=== PATIENT | female | born 1950 | race Caucasian/White ===

== ENCOUNTER 2017-03-14 09:41 | Day surgery (SDC) | payer OTHER ==
[2017-03-14] MEDS ORDERED: NS 500 ML IV 500 ML IV ONE (09:55)
[2017-03-14] MEDS ORDERED: NS 1/2 1000 ML IV 500 ML IV ONE (10:00)
[2017-03-14] MEDS ORDERED: TETRACAINE 0.5% OPHTH 1 DOSE AFFEYE ONE ×2 (10:00→13:35)
[2017-03-14] MEDS: VIGAMOX 0.5% OPHTH 1 DOSE AFFEYE ONE ×2 (10:01→13:46)
[2017-03-14] MEDS ORDERED: VIGAMOX 0.5% OPHTH 1 DOSE AFFEYE ONE ×2 (10:06→10:11)
[2017-03-14] MEDS ORDERED: PROLENSA OPHTH 1 DOSE AFFEYE ONE (10:12)
[2017-03-14] MEDS ORDERED: ALPHAGAN-P OPHTH 1 DOSE AFFEYE ONE (10:13)
[2017-03-14] MEDS ORDERED: AK-DILATE 2.5% OPHTH 1 DOSE OP ONE ×3 (10:14→10:16)
[2017-03-14] MEDS ORDERED: MYDRIACIL OPHTH 1 DOSE AFFEYE ONE ×3 (10:14→10:16)
[2017-03-14] MEDS ORDERED: CYCLOGYL 1% OPHTH 1 DOSE OP ONE ×3 (10:14→10:16)
[2017-03-14] MEDS ORDERED: VERSED IVP ONE ×2 (13:22)
[2017-03-14] MEDS ORDERED: ALCAINE or OPHTHETIC 1 DOSE AFFEYE ONE (13:23)
[2017-03-14] MEDS ORDERED: VERSED ONE ×2 (13:24→15:54)
[2017-03-14] MEDS ORDERED: AK-DILATE 10% OPHTH 1 DOSE AFFEYE ONE (13:25)
[2017-03-14] MEDS ORDERED: BETADINE OPHTH SOLN 5% EACHEYE ONE (13:35)
[2017-03-14] MEDS ORDERED: ADRENALINE CHL INJ IJ ONE (13:35)
[2017-03-14] MEDS ORDERED: VISCOAT 0.5 ML IO ONE (13:36)
[2017-03-14] MEDS ORDERED: DUOVISC IO ONE (13:36)
[2017-03-14] MEDS ORDERED: XYLOCAINE-MPF 1% IJ ONE (13:36)
[2017-03-14] MEDS ORDERED: BSS OPHTH (PLAIN) 500 ML with VANCOMYCIN HCL 500 MG VIAL 25 MG, ADRENALINE CHL INJ 1 MG IR ONE ×3 (13:36)
[2017-03-14 14:15] VITALS: BP 170/74
== END 2017-03-14 14:29 | disposition home or self-care (01) ==
LOC: SURG1 09:41
PROVIDERS: ATTEND Ophthalmology
PROC: 08DK3ZZ Extraction of Left Lens, Percutaneous Approach (ICD-10-PCS; principal; 2017-03-14 21:00)
PROC: 08RK3JZ Replacement of Left Lens with Synthetic Substitute, Percutaneous Approach (ICD-10-PCS; principal; 2017-03-14 21:00)
DX: H25.12 Age-related nuclear cataract, left eye (principal); H25.012 Cortical age-related cataract, left eye; H52.222 Regular astigmatism, left eye
CPT/HCPCS: A4217; J0170; J2250; J3370